=== PATIENT | male | born 1985 | race Caucasian/White ===

== ENCOUNTER 2022-10-10 14:50 | Day surgery (SDC) | payer SELFPAY ==
[2022-10-10] VITALS (16 sets, daily range): BP systolic 113–151; BP diastolic 67–91; PULSE 54–87; RESP 14–18; TEMP 36.6–36.9; O2SAT 91–99; BMI 25.7
--- NOTE | 2022-10-10 16:01 | CTR_ITS ---
PROCEDURE INFORMATION: Exam: CT Abdomen And Pelvis With Contrast Exam date and time: 10/10/2022 4:19 PM Age: 37 years old Clinical indication: Abdominal pain; Localized; Right lower quadrant (rlq); Additional info: Abd pain TECHNIQUE: Imaging protocol: Computed tomography of the abdomen and pelvis with contrast. Sagittal and coronal reformatted images were created and reviewed. Radiation optimization: All CT scans at this facility use at least one of these dose optimization techniques: automated exposure control; mA and/or kV adjustment per patient size (includes targeted exams where dose is matched to clinical indication); or iterative reconstruction. Contrast material: OMNI 350; Contrast volume: 100 ml; Contrast route: INTRAVENOUS (IV); REPORTING DATA: Count of CT and Cardiac NM exams in prior 12 months: This patient has received 0 known CTs and 0 known cardiac nuclear medicine studies in the 12 months prior to the current study. COMPARISON: No relevant prior studies available. RADIATION DOSE METRICS: Total DLP (mGy-cm): 685.74 FINDINGS: Lungs: Visualized lungs are clear. Pleural spaces: No pleural effusion. Heart: Visualized portions of the heart are unremarkable. Liver: The liver is unremarkable. Gallbladder and bile ducts: The gallbladder is unremarkable. No biliary ductal dilatation. Pancreas: The pancreas is unremarkable. No pancreatic ductal dilatation. Spleen: The spleen is unremarkable. Small splenule in the left upper quadrant. Adrenal glands: The right and left adrenal glands are unremarkable. Kidneys and ureters: Subcentimeter hypodense focus in the left kidney that is too small to characterize, however likely represents a small cyst. Simple cyst in the left kidney measuring 5.0 cm. The right and left ureters are unremarkable. Stomach and bowel: No acute abnormality in the stomach. No acute abnormality in the small bowel. No acute abnormality in the colon. Appendix: There is a retrocecal appendix. There is an appendicolith in the mid lumen of the appendix. The appendix proximal to this area is mildly dilated measuring 1.1 x 1.2 cm (series 7, image 58 and series 4, image 50). There is also a thickened wall and surrounding inflammation at this area of the appendix. Findings are consistent with tip appendicitis. Intraperitoneal space: No free intraperitoneal air. No ascites. No loculated fluid collections to suggest an abscess. Vasculature: No evidence for aortic aneurysm or aortic dissection. Hepatic veins, portal veins, splenic vein, and SMV are patent. Lymph nodes: No lymphadenopathy. Urinary bladder: The bladder is unremarkable. Reproductive: Unremarkable as visualized. Bones/joints: Mild degenerative changes in the visualized spine. Soft tissues: The extra-abdominal soft tissues are unremarkable. CT/CT abdomen pelvis w con* [id number] IMPRESSION: 1. There is a retrocecal appendix. There is an appendicolith in the mid lumen of the appendix with findings consistent with tip appendicitis proximal to this area. 2. Incidental/nonacute findings are listed in the report. COMMENTS: Consistent with the [employer]'s Incidental Findings Committee white paper (J Am Jodie Radiol 2018): Any incidental renal lesion less than 1 cm or classified as too small to characterize, or any incidental cystic renal lesion characterized as simple-appearing, is likely benign. No follow-up imaging is recommended for these lesions per consensus recommendations based on imaging criteria.
--- NOTE | 2022-10-10 16:05 | W.ED.ABDPA2 ---
HPI - Abdominal Pain General: Chief Complaint: Abdominal Pain Stated Complaint: ab pain Time Seen by Provider: 10/10/22 15:52 Source: patient Mode of arrival: ambulatory History of Present Illness: 37-year-old male presents emergency room complaining of right lower quadrant abdominal pain. He states pain began around 3:00's morning progressively worsening radiates into his back he denies any dysuria urgency or frequency or hematuria. Moderate loss of appetite. MD elicited complaint: abdominal pain Onset (ago): hour(s) Pain Consistency: constant Location: RLQ Severity: moderate Quality: sharp Radiation: back Exacerbating factors: nothing Relieving factors: nothing Associated Symptoms: Denies anorexia, belching, bloating, change in bowel habits, change in stool character, chills, coffee ground emesis, constipation, GI cramping, diarrhea, dyspepsia, dysuria, excessive flatus, fever(s), heartburn, hematochezia, hematuria, hematemesis, fecal incontinence, loose stools, melena, nausea, poor appetite, syncope and vomiting Review of Systems Const: Denies: fever(s) or chills ENMT: Denies: throat pain, ear or mastoid pain, nasal discharge or nasal congestion Card: Denies: syncope Resp: Denies: dyspnea, productive cough or non-productive cough GI: Reports: abdominal pain; Denies: nausea, vomiting, hematemesis, coffee ground emesis, heartburn, diarrhea, constipation, bloating, GI cramping, belching, excessive flatus, fecal incontinence, change in bowel habits, change in stool character, hematochezia or melena : Denies: dysuria or hematuria Skin/Breast: Denies: rash or pruritus Physical Exam Const: GENERAL APPEARANCE: cooperative and comfortable ORIENTATION/CONSCIOUSNESS: Yes awake, Yes oriented to person, Yes oriented to place and Yes oriented to time HENMT: COMMON NORMALS: normocephalic, atraumatic and hearing grossly normal bilaterally HEAD & SCALP: normocephalic and atraumatic Resp: COMMON NORMALS: normal respiratory effort, No retractions, No use of accessory muscles and clear to auscultation bilaterally AUSCULTATION: clear to auscultation bilaterally Cardio: COMMON NORMALS: regular rate, regular rhythm and No murmurs present (Cardio) RATE: regular rate RHYTHM: regular rhythm GI: COMMON NORMALS: No hepatosplenomegaly present AUSCULTATION: Yes normoactive bowel sounds PALPATION: Yes Tenderness to palpation present (GI) Details: RLQ, No Guarding due to palpation present (GI) and Yes No hepatosplenomegaly present Extremity: COMMON NORMALS: normal to inspection, capillary refill normal, no clubbing, cyanosis or edema, no calf tenderness and no pedal edema Neuro: SENSORIUM/ORIENTATION: Yes oriented to person, Yes oriented to place and Yes oriented to time Skin: COMMON NORMALS: no rashes or lesions noted GENERAL SKIN EXAM: no rashes or lesions noted Course Vital Signs: Vital signs: Vital Signs Temperature 98.2 F 10/10/22 17:50 Pulse Rate 78 10/10/22 17:50 Respiratory Rate 18 10/10/22 17:50 Blood Pressure 125/84 10/10/22 17:50 Pulse Oximetry 99 10/10/22 17:50 Oxygen Delivery Me thod Room Air 10/10/22 17:50 MDM - Abdominal Pain Medical Decision Making Acute appendicitis discussed with surgeon that we will direct to the OR. IV fluids started given dose of Zosyn. Medical Records I reviewed the patient's medical records. Lab Data I reviewed the patient's lab results. 10/10/22 15:59 10/10/22 15:59 Labs/Radiology: Radiology Impressions Abdomen/Pelvis CT 10/10/22 16:01 IMPRESSION: 1. There is a retrocecal appendix. There is an appendicolith in the mid lumen of the appendix with findings consistent with tip appendicitis proximal to this area. 2. Incidental/nonacute findings are listed in the report. COMMENTS: Consistent with the [employer]'s Incidental Findings Committee white paper (J Am Jodie Radiol 2018): Any incidental renal lesion less than 1 cm or classified as too small to characterize, or any incidental cystic renal lesion characterized as simple-appearing, is likely benign. No follow-up imaging is recommended for these lesions per consensus recommendations based on imaging criteria. ADDENDUM: 10/10/22 1230 THIS REPORT CONTAINS FINDINGS THAT MAY BE CRITICAL TO PATIENT CARE. The findings were verbally communicated via telephone conference with TEE Taylor at 5:08 PM CDT on 10/10/2022. The findings were acknowledged and understood. Laboratory Results WBC 11.9 10^3/uL (4.0-10.0) H 10/10/22 15:59 RBC 4.62 10^6/uL (4.1-5.3) 10/10/22 15:59 Hgb 14.7 g/dL (11.7-16.6) 10/10/22 15:59 Hct 42.1 % (42.0-52.0) 10/10/22 15:59 MCV 91.1 fl (80-94) 10/10/22 15:59 MCH 31.8 pg (28.0-34.0) 10/10/22 15:59 MCHC 34.9 g/dL (30.0-36.0) 10/10/22 15:59 RDW 11.9 % (12.1-15.1) L 10/10/22 15:59 Plt Count 271 10^3/cmm (130-400) 10/10/22 15:59 MPV 9.5 fL (7.4-10.4) 10/10/22 15:59 Neut % (Auto) 79.1 % 10/10/22 15:59 Lymph % (Auto) 11.8 % 10/10/22 15:59 [place] % (Auto) 8.2 % 10/10/22 15:59 Eos % (Auto) 0.3 % 10/10/22 15:59 Baso % (Auto) 0.4 % 10/10/22 15:59 Neut # (Auto) 9.40 10^3/uL (1.8-7.7) H 10/10/22 15:59 Lymph # (Auto) 1.4 10^3/uL (0.8-4.8) 10/10/22 15:59 [place] # (Auto) 1.0 10^3/uL (0.2-0.9) H 10/10/22 15:59 Eos # (Auto) 0.0 10^3/uL (0.0-0.8) 10/10/22 15:59 Baso # (Auto) 0.1 10^3/uL (0.0-0.1) 10/10/22 15:59 Nucleated RBC % (auto) 0 % 10/10/22 15:59 Nucleated RBCs # 0.0 /100WBC 10/10/22 15:59 Sodium 139 mmol/L (136-145) 10/10/22 15:59 Potassium 3.8 mmol/L (3.5-5.1) 10/10/22 15:59 Chloride 101 mmol/L (98-107) 10/10/22 15:59 Carbon Dioxide 24 mmol/L (22-29) 10/10/22 15:59 Anion Gap 17.8 (5-19) 10/10/22 15:59 BUN 13 mg/dL (6-20) 10/10/22 15:59 Creatinine 0.8 mg/dL (0.7-1.2) 10/10/22 15:59 GFR Calculation 108.2 mL/min (90-130) 10/10/22 15:59 Glucose 95 mg/dL (65-115) 10/10/22 15:59 Calculated Osmolality 288 mOsm/kg (285-295) 10/10/22 15:59 Calcium 9.4 mg/dL (8.5-10.5) 10/10/22 15:59 Total Bilirubin 0.8 mg/dL (0.15-1.2) 10/10/22 15:59 AST 14 U/L (0-40) 10/10/22 15:59 ALT 13 U/L (0-41) 10/10/22 15:59 Alkaline Phosphatase 59 U/L (40-130) 10/10/22 15:59 Total Protein 6.6 g/dL (6.6-8.7) 10/10/22 15:59 Albumin 4.6 g/dL (3.5-5.2) 10/10/22 15:59 Globulin 2.0 g/dL (1.3-4.6) 10/10/22 15:59 Lipase 18 U/L (13-60) 10/10/22 15:59 Urine Color Straw (Yellow) 10/10/22 17:21 Urine Appearance Cloudy (CLEAR) A 10/10/22 17:21 Urine pH 8 (5-7) H 10/10/22 17:21 Ur Specific [place] 1.015 (1.005-1.030) 10/10/22 17:21 Urine Protein Neg (Negative) 10/10/22 17:21 Urine Glucose (UA) Norm (Normal) 10/10/22 17:21 Urine Ketones Negative (Negative) 10/10/22 17:21 Urine Blood Neg (Negative) 10/10/22 17:21 Urine Nitrate Negative (Negative) 10/10/22 17:21 Urine Bilirubin Neg (Negative) 10/10/22 17:21 Prot Sulfosalicylic Acd Negative (Negative) 10/10/22 17:21 Urine Urobilinogen 1 mg/dL (Negative) H 10/10/22 17:21 Ur Leukocyte Esterase Negative (Negative) 10/10/22 17:21 Urine RBC None /hpf (0-2) 10/10/22 17:21 Urine WBC Rare /hpf (0-5) 10/10/22 17:21 Ur Squamous Epith Cells None /hpf (0-5) 10/10/22 17:21 Amorphous Sediment 4+ /hpf 10/10/22 17:21 Urine Bacteria None /hpf (NONE) 10/10/22 17:21 Discharge Plan Discharge Patient Disposition: Admitted As Inpatient Clinical Impression: Acute appendicitis Condition: Stable Coding Level of Care Code ED Thread Grinder Tool for Deepa Hackett
[2022-10-10 16:11] LABS: Basophils # 0.1 10^3/uL (0.0-0.1); Basophils % 0.4 %; Eosinophils % 0.3 %; Hematocrit 42.1 % (42.0-52.0); Hemoglobin 14.7 g/dL (11.7-16.6); Lymphocytes # 1.4 10^3/uL (0.8-4.8); Lymphocytes % 11.8 %; Mean Corpuscular HGB Conc 34.9 g/dL (30.0-36.0); Mean Corpuscular Hemoglobin 31.8 pg (28.0-34.0); Mean Corpuscular Volume 91.1 fl (80-94); Mean Platelet Volume 9.5 fL (7.4-10.4); Monocytes % 8.2 %; Neutrophils % 79.1 %; Nucleated Red Blood Cells % 0 %; Platelet Count 271 10^3/cmm (130-400); Red Blood Count 4.62 10^6/uL (4.1-5.3); Red Cell Distribution Width 11.9 % (12.1-15.1); White Blood Count 11.9 10^3/uL (4.0-10.0)
[2022-10-10] MEDS: iohexol 350 mg/mL 500 mL Btl (per mL) IV (16:22)
[2022-10-10 16:32] LABS: Alanine Aminotransferase 13 U/L (0-41); Albumin Level 4.6 g/dL (3.5-5.2); Alkaline Phosphatase 59 U/L (40-130); Anion Gap 17.8 (5-19); Aspartate Amino Transferase 14 U/L (0-40); Blood Urea Nitrogen 13 mg/dL (6-20); Calcium 9.4 mg/dL (8.5-10.5); Carbon Dioxide 24 mmol/L (22-29); Chloride 101 mmol/L (98-107); Creatinine Clr Calc Pharmacy 151.5961; Glomerular Filtration Rate 108.2 mL/min (90-130); Glucose 95 mg/dL (65-115); Lipase 18 U/L (13-60); Osmolality Calculated 288 mOsm/kg (285-295); Potassium 3.8 mmol/L (3.5-5.1); Sodium 139 mmol/L (136-145); Total Bilirubin 0.8 mg/dL (0.15-1.2); Total Protein 6.6 g/dL (6.6-8.7)
--- NOTE | 2022-10-10 17:32 | PM.HP ---
Providers/Chief Complaint Chief Complaint: ab pain History of Present Illness Josef Curtis is a 37 year old male who presented to the hospital with 1 day history of right lower quadrant abdominal pain. The pain is sharp and constant. Palpation makes pain worse. Nothing makes pain better. He denies any fever, chills, nausea, emesis, diarrhea and/or constipation. CT of the abdomen pelvis shows early acute appendicitis with a retrocecal appendix with an appendicolith. Review of Systems General: Reports: 10 or more systems reviewed and unremarkable except in HPI and below Medications/Allergies Allergies Allergy/AdvReac Type Severity Reaction Status Date / Time No Known Allergies Allergy Verified 10/10/22 15:02 Vitals/I&O/Wt Last Vital Signs Temp 98.5 F 10/10/22 14:59 Pulse 74 10/10/22 16:53 Resp 16 10/10/22 14:59 BP 113/79 10/10/22 16:53 Pulse Ox 97 10/10/22 16:53 O2 Del Method Room Air 10/10/22 16:53 Weight last 48 hrs Weight 200 lb Physical Exam Narrative: General : Patient is well developed , no acute distress, oriented x3 Head : Normal cephalic, a-traumatic. Ears : Pinnae and external canal are normal. Hearing is normal. Eyes : PERRLA, Sclera and injection are normal. No conjunctival discharge. Nose : Mucous membranes are without erythema. Throat : buccal mucosa is normal, gums are without significant recession or hypertrophy. Lungs : Equal chest rise bilaterally, no use of accessory muscles, trachea is midline. Cor : Rate and rhythm are normal. Abdomen : Soft, ND, tender to palpation right lower quadrant, negative Rovsing's, no g/r/m Extremities : No edema, no cyanosis or clubbing, dorsalis pedis pulses are present bilaterally, non-tender to palpation of calves. Upper extremities are normal bilaterally. Back : non-tender to palpation, no CVA tenderness. Neuro : CN II - XII intact, Upper and lower extremities have equal and full strength Data 10/10/22 15:59 10/10/22 15:59 A&P Assessment and plan (1) Acute appendicitis: Plan Laparoscopic Appendectomy The risks and benefits of the procedure, including but not limited to, bleeding, infection, scar, numbness, pain, damage to surrounding structures, conversion to an open procedure, were explained to the patient. He is understanding of the risks and wishes to proceed. Attestations Medical Necessity Statement*: Patient may be discharged from the PACU or admitted 1 night following laparoscopic appendectomy Coding Level of Care Code 24493 Diagnoses Acute appendicitis K35.80
[2022-10-10 17:46] LABS: Urine Color Straw (Yellow)
[2022-10-10 17:47] LABS: Add Urine Microscopic? YES; Bilirubin Urine Neg (Negative); Blood Urine Neg (Negative); Glucose Urine UA Norm (Normal); Ketones Urine Negative (Negative); Leukocyte Esterase Urine Negative (Negative); Nitrate Urine Negative (Negative); Protein Urine Neg (Negative); Specific Gravity, Urine 1.015 (1.005-1.030); Sulfosalicylic Acid Urine Negative (Negative); Urine Appearance Cloudy (CLEAR); Urobilinogen Urine 1 mg/dL (Negative); pH Urine 8 (5-7)
[2022-10-10 17:50] LABS: WBC Urine RARE /hpf (0-5)
[2022-10-10 17:51] LABS: Add Urine Culture? No; Amorphous Sediment Urine 4+ /hpf
--- NOTE | 2022-10-10 17:59 | ANES.PREANE2 ---
Pre-Anesthetic Assessment Height/Weight: Height 1.88 m Weight 90.718 kg Temp Pulse Resp BP Pulse Ox O2 Del Method 98.5 F 74 16 113/79 97 Room Air 10/10/22 14:59 10/10/22 16:53 10/10/22 14:59 10/10/22 16:53 10/10/22 16:53 10/10/22 16:53 Operation Date: 10/10/22 18:30 Proposed Procedures p Laparoscopic Appendectomy(Not Applicable) - Noel Gonzalez DO Familial anesthetic complications: None Was Beta Gurdeep taken within 24 hours: N/A Was Clonidine taken within 24 hours: N/A Last intake: 11 or 11:30 3 bites of meat loaf and shrimp Social No alcohol and No tobacco vapes Exam alert, oriented x 3, clear to auscultation bilaterally and regular rate & rhythm Airway Dentition: full Anesthetic Plan ASA status: 2 Anesthesia: General Risk of > 500 ml blood loss (7ml/kg in children): No Medications/Allergies Allergies Allergy/AdvReac Type Severity Reaction Status Date / Time No Known Allergies Allergy Verified 10/10/22 15:02 Data Anesthesia 10/10/22 15:59 10/10/22 15:59 Short CBC 10/10/22 Range/Units 15:59 WBC 11.9 H (4.0-10.0) 10^3/uL Hgb 14.7 (11.7-16.6) g/dL Hct 42.1 (42.0-52.0) % MCV 91.1 (80-94) fl Plt Count 271 (130-400) 10^3/cmm Neut % (Auto) 79.1 % Neut # (Auto) 9.40 H (1.8-7.7) 10^3/uL BMP 10/10/22 15:59 Sodium 139 Potassium 3.8 Chloride 101 Carbon Dioxide 24 BUN 13 Creatinine 0.8 Glucose 95 Calcium 9.4 Liver Function 10/10/22 Range/Units 15:59 Total Bilirubin 0.8 (0.15-1.2) mg/dL AST 14 (0-40) U/L ALT 13 (0-41) U/L Alkaline Phosphatase 59 (40-130) U/L Albumin 4.6 (3.5-5.2) g/dL Urine 10/10/22 Range/Units 17:21 Urine Color Straw (Yellow) Urine Appearance Cloudy A (CLEAR) Urine pH 8 H (5-7) Ur Specific [place] 1.015 (1.005-1.030) Urine Protein Neg (Negative) Urine Glucose (UA) Norm (Normal) Urine Ketones Negative (Negative) Urine Nitrate Negative (Negative) Urine Bilirubin Neg (Negative) Ur Leukocyte Esterase Negative (Negative) Urine RBC None (0-2) /hpf Urine WBC Rare (0-5) /hpf Cardiac Studies: No Data to Display
[2022-10-10] MEDS: sodium chloride 0.9% 1,000 ML 30 ML IV (18:03)
[2022-10-10] MEDS: piperacillin-tazobactam 4.5 GM in sodium chloride 0.9% (plus) 50 ML IV (19:01)
[2022-10-10] MEDS: lidocaine-epi 2% 20 mL INJ INJECTION (19:14)
--- NOTE | 2022-10-10 19:33 | P.OP_ITS ---
Operative Report Date of procedure: October 10, 2022 Pre-op diagnosis: Acute appendicitis Post-op diagnosis: same Procedure done: Laparoscopic appendectomy Specimens removed/disposition: Appendix Surgeon: Dr. Noel Gonzalez DO Anesthesia: General Estimated blood loss (mL): 5 Complications: None apparent Brief History: Very pleasant 37-year-old gentleman with acute appendicitis. Laparoscopic appendectomy was indicated. The risk benefits were explained and documented. Procedure: Patient was wheeled into the operative room and placed on the OR table in a supine position. Abdomen was inspected prepped and draped in usual sterile fashion. Time-out was performed and all present were in agreement. A 15 blade scalp was used to make a stab incision in the left upper quadrant and intra- abdominal insufflation was achieved using a Veress needle. After localizing the tissue incisions were made and a 12 millimeter trocar was placed into the umbilicus as well as a 5mm in the right lower quadrant and a 5 mm in the left lower quadrant . The appendix was identified and was mildly inflamed. I used the Voyant to ligate the mesoappendix at the base. I then used 2 PDS endo-loops to snare the base of the appendix. I then used the Voyant to ligate the appendix distally. The appendix was removed from the abdomen using an Endo- Catch bag through the umbilical incision. I examined the abdomen and no further pathology was identified. Hemostasis was noted. I then closed the umbilical site with a Tim-Maxim and 0 Vicryl suture in a figure of 8 fashion. All ports removed. Skin was washed and dried. Incisions were closed with 4 O Vicryl in a subcuticular interrupted fashion. Skin glue was applied. Patient tolerated the procedure well.
[2022-10-10] MEDS: HYDROmorphone 1 mg/mL INJ 1 mL 0.5 MG IVP (19:50)
[2022-10-10] MEDS: acetaminophen 1,000 MG/100 ML PIGGYBACK 400 MG IV (20:01)
== END 2022-10-10 21:11 | disposition home or self-care (01) ==
LOC: ER 16:07 → OR 17:29
PROVIDERS: Emergency Medicine; Emergency Provider Family Medicine; Visit Provider Surgery
PROC: 0DTJ4ZZ Resection of Appendix, Percutaneous Endoscopic Approach (ICD-10-PCS; CPT 44970; principal; 2022-10-10 18:30)
DX: K35.80 Unspecified acute appendicitis (principal)
CPT/HCPCS: 44970; 74177; 80053; 81001; 83690; 85025; 88304; J0131; J0330; J1100; J1170; J2405; J2543; J2704; J2710; J3010; J3490; J7030; Q9967